=== PATIENT | male | born 1990 | race Caucasian/White ===

== ENCOUNTER 2021-12-24 09:25 | Emergency (ER) | payer MEDICAID ==
[2021-12-24] MEDS ORDERED: Zofran 4 MG/2 ML VIAL ONE (09:43)
[2021-12-24] MEDS ORDERED: TORAdol 30 mg Injection ONE (09:43)
[2021-12-24] MEDS ORDERED: Sodium Chloride 0.9% 1000 ML 1,000 ML ONE (09:43)
[2021-12-24] MEDS ORDERED: Sodium Chloride 0.9% 1000 ML 1,000 ML IV STA (09:51)
[2021-12-24] MEDS ORDERED: TORAdol 30 mg Injection IV ONE (09:52)
[2021-12-24] MEDS ORDERED: Zofran 4 MG/2 ML VIAL IV ONE (09:54)
[2021-12-24 09:59] LABS: Absolute Neutrophil Ct (ANC) 6.13 x10^3/uL (1.4-6.9); Basophil (Absolute #) 0.09 x10^3/uL (0-0.4); Eosinophil % 3.4 % (0.00-5.0); Hematocrit 46.6 % (42-50); Hemoglobin 16.1 g/dL (12.5-18.0); Lymphocyte (Absolute #) 1.56 x10^3/uL (1.0-4.6); Lymphocytes % 17.8 % (24.0-44.0); Mean Cell Volume 88.8 fL (78-100); Mean Corpuscular Hemoglobin 30.7 pg (26-32); Mean Corpuscular Hgb Concent. 34.5 g/dL (32-36); Mean Platelet Volume 10.4 fL (7.5-11.0); Monocyte (Absolute #) 0.64 x10^3/uL (0.0-1.3); Monocytes % 7.3 % (0.0-12.0); Neutrophil % 70.2 % (36.0-66.0); Platelet Count 250 x10^3/uL (150-450); Red Blood Count 5.25 x10^6/uL (4.1-5.6); Red Cell Distribution Width 11.9 % (11.5-14.0); White Blood Count 8.8 x10^3/uL (4.0-10.5)
--- NOTE | 2021-12-24 10:03 | ERPHSYRPT ---
- History of Present Illness Time Seen by Provider: 12/24/21 09:45 Source: patient Exam Limitations: no limitations Patient Subjective Stated Complaint: PT states "I have horrible pain in my right side." Triage Nursing Assessment: Pt presented alert and oriented X 3, skin pwd. Pt ambulates with a hunched over gait, holding his abdomen. Pt groaning and unable to sit still. Physician History: Patient is a 31-year-old male presents to emergency department for evaluation of right flank pain. Patient states pain started acutely at approximately 2 hours prior to arrival. Pain described as a stabbing sensation that is localized. No radiation. Pain localized to the right lower flank. No obvious hematuria. No trauma. No fever. Patient is mildly nauseous. No diarrhea. No rash. Symptoms are mild to moderate in intensity. No specific worsening or improving factors. Patient states is otherwise healthy. He voices no other complaints or concerns at this time. Timing/Duration: today Severity: moderate Modifying Factors: Improves With: nothing Associated Symptoms: nausea Allergies/Adverse Reactions: No Known Drug Allergies Allergy (Verified 12/24/21 09:49) Hx Tetanus, Diphtheria Vaccination/Date Given: No Hx Influenza Vaccination/Date Given: No Immunizations Up to Date: Yes Travel Risk - International Travel Have you traveled outside of the country in past 3 weeks: No - Coronavirus Screening Are you exhibiting any of the following symptoms?: No Close contact with a COVID-19 positive Pt in past 14-21 Days: No - Vaccine Status Have you recieved a Covid-19 vaccination: No - Review of Systems Constitutional: No Symptoms, No Fever, No Chills Eyes: No Symptoms Ears, Nose, & Throat: No Symptoms Respiratory: No Symptoms, No Cough, No Dyspnea Cardiac: No Symptoms, No Chest Pain, No Edema, No Syncope Abdominal/Gastrointestinal: No Symptoms, No Abdominal Pain, No Nausea, No Vomiting, No Diarrhea Genitourinary Symptoms: No Symptoms, No Dysuria Musculoskeletal: No Symptoms, No Back Pain, No Neck Pain Skin: No Symptoms, No Rash Neurological: No Symptoms, No Dizziness, No Focal Weakness, No Sensory Changes Psychological: No Symptoms Endocrine: No Symptoms Hematologic/Lymphatic: No Symptoms Immunological/Allergic: No Symptoms All Other Systems: Reviewed and Negative - Past Medical History Pertinent Past Medical History: Yes Cardiac History: Hypertension Psycho-Social History: Depression - Past Surgical History Past Surgical History: Yes - Social History Smoking Status: Current every day smoker How long have you smoked: years Exposure to second hand smoke: Yes Drug Use: marijuana Patient Lives Alone: No - Nursing Vital Signs Nursing Vital Signs: Initial Vital Signs Temperature 97.2 F 12/24/21 09:33 Pulse Rate 77 12/24/21 09:33 Respiratory Rate 22 12/24/21 09:33 Blood Pressure 134/100 12/24/21 09:33 O2 Sat by Pulse Oximetry 100 12/24/21 09:33 Pain Scale Pain Intensity 4 - Physical Exam General Appearance: no apparent distress, alert Eye Exam: PERRL/EOMI, eyes nml inspection Ears, Nose, Throat Exam: normal ENT inspection, TMs normal, pharynx normal, moist mucous membranes Neck Exam: normal inspection, non-tender, supple, full range of motion Respiratory Exam: normal breath sounds, lungs clear, airway intact, No respiratory distress Cardiovascular Exam: regular rate/rhythm, normal heart sounds, normal peripheral pulses Gastrointestinal/Abdomen Exam: soft, normal bowel sounds, No tenderness, No mass Back Exam: normal inspection, normal range of motion, No CVA tenderness, No vertebral tenderness Extremity Exam: normal inspection, normal range of motion, pelvis stable Neurologic Exam: alert, oriented x 3, cooperative, normal mood/affect, nml cere bellar function, nml station & gait, sensation nml, No motor deficits Skin Exam: normal color, warm, dry, No rash Lymphatic Exam: No adenopathy SpO2 Interpretation: normal SpO2: 100 O2 Delivery: Room Air - Course Nursing assessment & vital signs reviewed: Yes - CT Exams Abdomen/Pelvis CT Interpretation: Tele-radiologist Report (5 mm lung nodule, right 4 mm ureterolithiasis at L4. Hydronephrosis. Nephrolithiasis left renal cyst diverticulosis fatty hepatomegaly) Ordered Tests: Active Orders 24 hr Category Date Time Status IV Insertion STAT Care 12/24/21 09:51 Completed ABDOMEN AND PELVIS W/0 CONTRAS [CT] Stat Exams 12/24/21 10:32 Completed CBC W DIFF Stat Lab 12/24/21 09:34 Completed CMP Stat Lab 12/24/21 09:34 Completed CULTURE,URINE Stat Lab 12/24/21 Ordered UA W/RFX CULTURE Stat Lab 12/24/21 11:47 Completed Medication Summary Discontinued Medications Generic Name Dose Route Start Last Admin Trade Name Freq PRN Reason Stop Dose Admin Sodium Chloride Confirm 12/24/21 09:43 Sodium Chloride 0.9% 1000 Ml Administered 12/24/21 09:44 Dose 1,000 mls @ ud .ROUTE .STK-MED ONE Sodium Chloride 1,000 mls @ 999 mls/hr 12/24/21 09:51 12/24/21 11:19 Sodium Chloride 0.9% 1000 Ml IV 12/24/21 10:51 Infused .Q1H1M STA Infusion Ketorolac Tromethamine Confirm 12/24/21 09:43 Ketorolac Tromethamine 30 Mg/Ml Inj Administered 12/24/21 09:44 Dose 30 mg .ROUTE .STK-MED ONE Ketorolac Tromethamine 30 mg 12/24/21 09:52 12/24/21 09:55 Ketorolac Tromethamine 30 Mg/Ml Inj IV 12/24/21 09:53 30 mg STAT ONE Administration Morphine Sulfate 4 mg 12/24/21 10:19 12/24/21 10:21 Morphine Sulfate 4 Mg/Ml Injection IV 12/24/21 10:20 4 mg STAT ONE Administration Morphine Sulfate Confirm 12/24/21 10:20 Morphine Sulfate 4 Mg/Ml Injection Administered 12/24/21 10:21 Dose 4 mg .ROUTE .STK-MED ONE Ondansetron HCl Confirm 12/24/21 09:43 Ondansetron Hcl 4 Mg/2 Ml Vial Administered 12/24/21 09:44 Dose 4 mg .ROUTE .STK-MED ONE Ondansetron HCl 4 mg 12/24/21 09:54 12/24/21 09:55 Ondansetron Hcl 4 Mg/2 Ml Vial IV 12/24/21 09:55 4 mg STAT ONE Administration Lab/Rad Data: Laboratory Result Diagrams 12/24/21 09:34 12/24/21 09:34 Laboratory Results 12/24/21 12/24/21 12/24/21 Range/Units 11:47 09:34 09:34 WBC 8.8 (4.0-10.5) x10^3/uL RBC 5.25 (4.1-5.6) x10^6/uL Hgb 16.1 (12.5-18.0) g/dL Hct 46.6 (42-50) % MCV 88.8 (78-100) fL MCH 30.7 (26-32) pg MCHC 34.5 (32-36) g/dL RDW 11.9 (11.5-14.0) % Plt Count 250 (150-450) x10^3/uL MPV 10.4 (7.5-11.0) fL Gran % 70.2 H (36.0-66.0) % Immature Gran % (Auto) 0.3 (0.00-0.4) % Nucleat RBC Rel Count 0.0 (0.00-0.1) % Eos # (Auto) 0.30 (0-0.5) x10^3/uL Immature Gran # (Auto) 0.03 (0.00-0.03) x10^3u/L Absolute Lymphs (auto) 1.56 (1.0-4.6) x10^3/uL Absolute Monos (auto) 0.64 (0.0-1.3) x10^3/uL Absolute Nucleated RBC 0.00 (0.00-0.01) x10^3u/L Lymphocytes % 17.8 L (24.0-44.0) % Monocytes % 7.3 (0.0-12.0) % Eosinophils % 3.4 (0.00-5.0) % Basophils % 1.0 (0.0-0.4) % Absolute Granulocytes 6.13 (1.4-6.9) x10^3/uL Basophils # 0.09 (0-0.4) x10^3/uL Sodium 140 (137-145) mmol/L Potassium 4.5 (3.5-5.1) mmol/L Chloride 106 (98-107) mmol/L Carbon Dioxide 28 (22-30) mmol/L Anion Gap 10.2 (5-15) MEQ/L BUN 19 (9-20) mg/dL Creatinine 1.33 H (0.66-1.25) mg/dL Estimated GFR > 60.0 ML/MIN Glucose 107 H (74-106) mg/dL Calcium 8.9 (8.4-10.2) mg/dL Total Bilirubin 1.00 (0.2-1.3) mg/dL AST 39 (17-59) U/L ALT 54 H (0-50) U/L Alkaline Phosphatase 97 (38-126) U/L Serum Total Protein 7.3 (6.3-8.2) g/dL Albumin 4.0 (3.5-5.0) g/dL Urinalys Dipstick Clnc MAIN LAB Urine Color DARK YELLOW (YELLOW) Urine Appearance CLOUDY (CLEAR) Urine pH 8.5 (5-6) Ur Specific [place] 1.020 (1.005-1.025) POC Urine Protein Conf TRACE (Negative) Urine Ketones NEGATIVE (NEGATIVE) Urine Nitrite NEGATIVE (NEGATIVE) Urine Bilirubin NEGATIVE (NEGATIVE) Urine Urobilinogen 0.2 (0-1) mg/dL Urine Leukocytes NEGATIVE (NEGATIVE) Urine WBC (Auto) 6-10 (0-5) /HPF Urine RBC (Auto) >101 (0-2) /HPF U Epithel Cells (Auto) NONE (FEW) /HPF Urine Bacteria (Auto) NONE (NEGATIVE) /HPF Urine RBC LARGE (0-5) Alejandro/ul Urine Mucus (Auto) SLIGHT (NEGATIVE) /HPF Ur Culture Indicated? NO Urine Glucose NEGATIVE (NEGATIVE) mg/dL - Progress Progress: improved Progress Note: Patient reassessed. Pain significantly improved. Work-up reveals a ureteral lithiasis measuring 4 mm. There is associated hydronephrosis. Patient does have a 5 mm noncalcified lung nodule which will need follow-up. Slightly elevated creatinine. Patient understands the importance of follow-up and agrees to do so. Will discharge home. Patient received a prescription for Toradol [place] and Flomax. Patient has a referral to urology. Patient voices no other complaints or concerns at this time. He agrees to follow-up in 48 hours for evaluation. Portions of this note were created with voice recognition technology. There may be grammatical, spelling, punctuation or sound alike errors 12/24/21 11:04 12/24/21 11:09 Marginal pyuria on urinalysis. However in the setting it is likely not a urinary tract infection. Pyuria can be seen in ureterolithiasis. No indication for antibiotics at this time. Urine sent for culture. 12/24/21 13:51 Counseled pt/family regarding: lab results, diagnosis, need for follow-up, rad results - Departure Departure Disposition: Home Clinical Impression: Flank pain, Nephrolithiasis, Fatty liver, Hepatomegaly, Lung nodule, Ureterolithiasis, 4 mm kidney stone, Diverticulosis, Creatinine elevation Condition: Stable Critical Care Time: No Referrals: OTIS MELTON MD [Primary Care Provider] - Follow up/PCP as directed SOTO HENAO [COURTESY STAFF] - Follow up/PCP as directed Additional Instructions: Discharge/Care Plan MARY ALICE FOREMAN was seen on 12/24/21 in the Emergency Room. The patient was travel counselor ed regarding Diagnosis,Lab results, Imaging studies, need for follow up and when to return to the Emergency Room. Prescriptions given: Discharge Note I have spoken with the patient and/or caregivers. I have explained the patient's condition, diagnosis and treatment plan based on the information available to me at this time. I have answered the patient's and/or caregiver's questions and addressed any concerns. The patient and/or caregivers have as good understanding of the patient's diagnosis, condition and treatment plan as can be expected at this point. The vital signs have been stable. The patient's condition is stable and appropriate for discharge from the emergency department. The patient will pursue further outpatient evaluation with the primary care physician or other designated or consulting physician as outlined in the discharge instructions. The patient and/or caregivers are agreeable to this plan of care and follow-up instructions have been explained in detail. The patient and/or caregivers have received these instruction. The patient/and or caregivers are aware that any significant change in condition or worsening of symptoms should prompt an immediate return to this or the closest emergency department or call 911. Prescriptions: Tamsulosin HCl 0.4 mg [Flomax 0.4 MG] 0.4 mg PO DAILY 14 Days #14 cap
[2021-12-24 10:11] LABS: ALKALINE PHOSPHATASE 97 U/L (38-126); ANION GAP 10.2 MEQ/L (5-15); BLOOD UREA NITROGEN 19 mg/dL (9-20); CHLORIDE 106 mmol/L (98-107); Calcium 8.9 mg/dL (8.4-10.2); Carbon Dioxide 28 mmol/L (22-30); Creatinine 1 1.33 mg/dL (0.66-1.25); EST GLOMERULAR FILTRATION RATE > 60.0 ML/MIN; Glucose 107 mg/dL (74-106); Potassium 4.5 mmol/L (3.5-5.1); SGOT/AST 39 U/L (17-59); SGPT/ALT 54 U/L (0-50); SODIUM 140 mmol/L (137-145); Total Protein 7.3 g/dL (6.3-8.2)
[2021-12-24] MEDS ORDERED: MORPHINE SULFATE 4 MG INJ IV ONE (10:19)
[2021-12-24] MEDS ORDERED: MORPHINE SULFATE 4 MG INJ ONE (10:20)
--- NOTE | 2021-12-24 10:49 | XRAY ---
Indication: Right flank pain. Bleeding ulcers. Multiple contiguous axial images obtained through the abdomen and pelvis without contrast using renal stone protocol. Comparison: None Lung bases demonstrates minimal bibasilar subsegmental atelectasis/scarring. Anterior right middle lobe demonstrates incompletely visualized 4-5 mm noncalcified nodule. Heart is not enlarged. Right mid ureter demonstrates 3-4 mm calculus, approximately L4 level. Proximal right ureter is slightly prominent along with mild hydronephrosis and mild renal edema consistent with obstructive uropathy. Right lower kidney demonstrates additional punctate calculus. Left lower kidney demonstrates 1 cm cortical cyst. Noncontrasted stomach and bowel loops appear nonobstructed with normal appendix. Minimal sigmoid diverticulosis without diverticulitis. No free fluid/air. 19.4 cm fatty hepatomegaly. Remaining liver, gallbladder, pancreas, spleen, adrenal glands, kidneys, ureters, bladder, and aorta are unremarkable for noncontrast exam. Osseous structures intact. Impression: 1. 3-4 mm right mid ureter calculus producing obstructive uropathy as detailed. Additional nonobstructing right renal punctate calculus. 2. Incidental sigmoid diverticulosis and fatty hepatomegaly. 3. Indeterminant 4-5 mm right middle lobe noncalcified nodule.
[2021-12-24 11:22] VITALS: BP 150/90; PULSE 90
[2021-12-24 13:03] LABS: Mucus SLIGHT /HPF (NEGATIVE)
[2021-12-24 13:05] LABS: Appearance CLOUDY (CLEAR); Bilirubin NEGATIVE (NEGATIVE); Dipstick done @ ? MAIN LAB; Glucose NEGATIVE (NEGATIVE); Ketones NEGATIVE (NEGATIVE); Nitrite NEGATIVE (NEGATIVE); Ph 8.5 (5-6); Protein,Urine Dip TRACE (Negative); RBC LARGE Ery/ul (0-5); Urobilinogen 0.2 mg/dL (0-1)
[2021-12-24 13:06] LABS: RBC >101 /HPF (0-2)
[2021-12-24 13:07] LABS: Urine Cultured Indicated? NO
[2021-12-24 13:52] VITALS: O2SAT 100
== END 2021-12-24 11:39 | disposition home or self-care (01) ==
LOC: ED 09:25
DX: N13.2 Hydronephrosis with renal and ureteral calculous obstruction (principal); K76.0 Fatty (change of) liver, not elsewhere classified; R16.0 Hepatomegaly, not elsewhere classified; R91.1 Solitary pulmonary nodule; K57.90 Diverticulosis of intestine, part unspecified, without perforation or abscess without bleeding; R79.89 Other specified abnormal findings of blood chemistry; R10.31 Right lower quadrant pain; R11.0 Nausea; I10 Essential (primary) hypertension; Z72.0 Tobacco use; Z28.310 Unvaccinated for COVID-19
CPT/HCPCS: 36000; 36415; 74176; 80053; 81015; 85025; 87086; 96360; 96374; 96375; 99284; J1885; J2270; J2405

== ENCOUNTER 2021-12-28 19:00 | Emergency (ER) | payer MEDICAID ==
[2021-12-28] MEDS ORDERED: Hydromorphone 1 mg/ml Injection IV ONE (19:24)
[2021-12-28] MEDS ORDERED: TORAdol 30 mg Injection IV ONE (19:24)
[2021-12-28] MEDS ORDERED: Zofran 4 MG/2 ML VIAL IV ONE (19:24)
[2021-12-28] MEDS ORDERED: Hydromorphone 1 mg/ml Injection ONE (19:27)
[2021-12-28] MEDS ORDERED: Zofran 4 MG/2 ML VIAL ONE (19:27)
[2021-12-28] MEDS ORDERED: TORAdol 30 mg Injection ONE (19:27)
[2021-12-28] MEDS ORDERED: Sodium Chloride 0.9% 1000 ML 1,000 ML ONE (19:31)
--- NOTE | 2021-12-28 19:33 | ERPHSYRPT ---
- History of Present Illness Time Seen by Provider: 12/28/21 19:20 Historian: patient Exam Limitations: no limitations Patient Subjective Stated Complaint: pt states "I was hear the other day and they said I had a kidney stone. I ran out of my pain meds at home." Triage Nursing Assessment: pt ambulatory to bed by self, pt alert and oriented, pt has known kidney stone and was seen in the ER for it a couple days ago, pt ran out of his pain medication at home, pt was prescribed toradol and norco, pt moving side to side in bed Physician History: This is a 31-year-old white male patient who was diagnosed with a 3 to 4 mm right mid ureteral calculus on 12/24/2021. There is a slightly prominent ureter and mild hydronephrosis present. Patient was discharged to home with Toradol, [place] and Flomax. He is out of the Toradol and Flomax. Patient has an appointment to see a urologist on 12/30/2021. Patient was tolerating his pain with the NSAID and [place] combination. Patient did drive himself but he states he can get a ride home. Timing/Duration: today Activities at Onset: none Quality: aching Abdominal Pain Onset Location: flank (Right flank) Pain Radiation: RLQ Severity of Pain-Max: moderate Severity of Pain-Current: moderate Associated Symptoms: denies symptoms Previous symptoms: same symptoms as today, recently seen, recently treated Allergies/Adverse Reactions: No Known Drug Allergies Allergy (Verified 12/28/21 19:09) Hx Tetanus, Diphtheria Vaccination/Date Given: No Hx Influenza Vaccination/Date Given: No Hx Pneumococcal Vaccination/Date Given: No Immunizations Up to Date: No Travel Risk - International Travel Have you traveled outside of the country in past 3 weeks: No - Coronavirus Screening Are you exhibiting any of the following symptoms?: No Close contact with a COVID-19 positive Pt in past 14-21 Days: No - Vaccine Status Have you recieved a Covid-19 vaccination: No - Review of Systems Constitutional: No Symptoms Eyes: No Symptoms Ears, Nose, & Throat: No Symptoms Respiratory: No Symptoms Cardiac: No Symptoms Abdominal/Gastrointestinal: Abdominal Pain Genitourinary Symptoms: Flank Pain (Right) Musculoskeletal: No Symptoms Skin: No Symptoms Neurological: No Symptoms Psychological: No Symptoms Endocrine: No Symptoms Hematologic/Lymphatic: No Symptoms Immunological/Allergic: No Symptoms All Other Systems: Reviewed and Negative - Past Medical History Pertinent Past Medical History: Yes Neurological History: No Pertinent History ENT History: No Pertinent History Cardiac History: Hypertension Respiratory History: Asthma Endocrine Medical History: No Pertinent History Psycho-Social History: Depression - Past Surgical History Past Surgical History: No - Social History Smoking Status: Current every day smoker How long have you smoked: years Exposure to second hand smoke: Yes Drug Use: marijuana Patient Lives Alone: No - Nursing Vital Signs Nursing Vital Signs: Initial Vital Signs Temperature 97.7 F 12/28/21 19:09 Pulse Rate 99 H 12/28/21 19:09 Respiratory Rate 18 12/28/21 19:09 Blood Pressure 145/118 12/28/21 19:09 O2 Sat by Pulse Oximetry 97 12/28/21 19:09 Pain Scale Pain Intensity 4 - Physical Exam General Appearance: mild distress (To moderate), alert, anxiety Eye Exam: PERRL/EOMI, eyes nml inspection Ears, Nose, Throat Exam: normal ENT inspection, moist mucous membranes Neck Exam: normal inspection, non-tender, supple, full range of motion Respiratory Exam: normal breath sounds, lungs clear, airway intact, No chest tenderness, No respiratory distress Cardiovascular Exam: regular rate/rhythm, normal heart sounds, normal peripheral pulses Gastrointestinal/Abdomen Exam: soft, normal bowel sounds, No tenderness Rectal Exam: not done Back Exam: normal inspection, normal range of motion, No CVA tenderness, No vertebral tenderness Extremity Exam: normal inspection, normal range of motion, pelvis stable Neurologic Exam: alert, oriented x 3, cooperative, battery test engineer II-XII nml as tested, normal mood/affect, nml cerebellar function, nml station & gait, sensation nml Skin Exam: normal color, warm, dry Lymphatic Exam: No adenopathy SpO2 Interpretation: normal SpO2: 97 O2 Delivery: Room Air Ordered Tests: Active Orders 24 hr Category Date Time Status IV Insertion STAT Care 12/28/21 19:19 Active ABDOMEN AND PELVIS W/0 CONTRAS [CT] Stat Exams 12/28/21 19:34 Taken Medication Summary Discontinued Medications Generic Name Dose Route Start Last Admin Trade Name Freq PRN Reason Stop Dose Admin Hydromorphone HCl 1 mg 12/28/21 19:24 12/28/21 19:29 Hydromorphone 1 Mg/1ml Inj 1 Mg/Ml Syringe IV 12/28/21 19:25 1 mg STAT ONE Administration Hydromorphone HCl Confirm 12/28/21 19:27 Hydromorphone 1 Mg/1ml Inj 1 Mg/Ml Syringe Administered 12/28/21 19:28 Dose 1 mg .ROUTE .STK-MED ONE Sodium Chloride Confirm 12/28/21 19:31 Sodium Chloride 0.9% 1000 Ml Administered 12/28/21 19:32 Dose 1,000 mls @ ud .ROUTE .STK-MED ONE Sodium Chloride 1,000 mls @ 999 mls/hr 12/28/21 19:34 12/28/21 20:40 Sodium Chloride 0.9% 1000 Ml IV 12/28/21 20:34 Infused .Q1H1M STA Infusion Ketorolac Tromethamine 30 mg 12/28/21 19:24 12/28/21 19:29 Ketorolac Tromethamine 30 Mg/Ml Inj IV 12/28/21 19:25 30 mg STAT ONE Administration Ketorolac Tromethamine Confirm 12/28/21 19:27 Ketorolac Tromethamine 30 Mg/Ml Inj Administered 12/28/21 19:28 Dose 30 mg .ROUTE .STK-MED ONE Ondansetron HCl 4 mg 12/28/21 19:24 12/28/21 19:28 Ondansetron Hcl 4 Mg/2 Ml Vial IV 12/28/21 19:25 4 mg STAT ONE Administration Ondansetron HCl Confirm 12/28/21 19:27 Ondansetron Hcl 4 Mg/2 Ml Vial Administered 12/28/21 19:28 Dose 4 mg .ROUTE .STK-MED ONE - Progress Progress: improved Progress Note: 12/28/21 20:51 Cat Scan of the abdomen pelvis without contrast was no change from the CAT scan that was performed on 12/24/2021. Counseled pt/family regarding: diagnosis, need for follow-up, rad results - Departure Departure Disposition: Home Clinical Impression: Right ureteral calculus, Obstructive uropathy Condition: Stable Critical Care Time: No Referrals: OTIS MELTON MD [Primary Care Provider] - Follow up/PCP as directed Additional Instructions: Drink plenty of fluids. Take ibuprofen 600 mg orally 3 times a day with food for the next 5 days. Continue your Flomax as prescribed. Keep your appointment with your urologist on 12/30/2021. Prescriptions: Hydrocodone/APAP 5/325 [[place] 5/325 mg] 1 each PO Q8H PRN PRN #6 tablet MDD 3 PRN Reason: Pain
[2021-12-28] MEDS ORDERED: Sodium Chloride 0.9% 1000 ML 1,000 ML IV STA (19:34)
[2021-12-28 20:29] VITALS: BP 135/85; PULSE 84
[2021-12-28 20:52] VITALS: O2SAT 97
[2021-12-28] MEDS ORDERED: NORCO 5/325 MG PO ONE (20:52)
[2021-12-28] MEDS ORDERED: NORCO 5/325 MG ONE (20:53)
--- NOTE | 2021-12-29 08:40 | XRAY ---
Indication: Right flank pain. Multiple contiguous axial images obtained through the abdomen and pelvis without contrast. Comparison: December 24, 2021 Lung bases clear. Heart not enlarged. Stomach is now distended with food/fluid. Noncontrasted stomach and bowel loops remain nonobstructed again with normal appendix. Stable 4 mm right mid ureter calculus again approximately L4 level with minimal hydroureter and mild hydronephrosis. No free fluid/air. Stable right lower renal punctate calculus, small left renal cyst, and fatty hepatomegaly. Remaining liver, gallbladder, pancreas, spleen, adrenal glands, kidneys, ureters, bladder, and aorta are unremarkable for noncontrast exam. Impression: Stable CT abdomen/pelvis without contrast exam again demonstrating 4 mm right mid ureter calculus producing partial obstructive uropathy, right renal punctate calculus, left renal cyst, and fatty hepatomegaly. No new/acute findings.
== END 2021-12-28 21:05 | disposition home or self-care (01) ==
LOC: ED 19:00
DX: N13.2 Hydronephrosis with renal and ureteral calculous obstruction (principal); R10.31 Right lower quadrant pain; I10 Essential (primary) hypertension; Z72.0 Tobacco use; Z79.891 Long term (current) use of opiate analgesic; Z28.310 Unvaccinated for COVID-19
CPT/HCPCS: 36000; 74176; 96360; 96374; 96375; 99284; J1170; J1885; J2405; A9270-GY

== ENCOUNTER 2022-02-14 11:16 | Emergency (ER) | payer OTHER ==
[2022-02-14] MEDS ORDERED: TORAdol 30 mg Injection IV ONE (12:06)
[2022-02-14] MEDS ORDERED: TORAdol 30 mg Injection ONE (12:14)
[2022-02-14 12:39] LABS: Absolute Neutrophil Ct (ANC) 5.74 x10^3/uL (1.4-6.9); Basophil (Absolute #) 0.06 x10^3/uL (0-0.4); Eosinophil % 3.3 % (0.00-5.0); Eosinophil (Absolute #) 0.26 x10^3/uL (0-0.5); Hematocrit 45.8 % (42-50); Hemoglobin 15.6 g/dL (12.5-18.0); Lymphocyte (Absolute #) 1.39 x10^3/uL (1.0-4.6); Lymphocytes % 17.6 % (24.0-44.0); Mean Cell Volume 89.8 fL (78-100); Mean Corpuscular Hemoglobin 30.6 pg (26-32); Mean Corpuscular Hgb Concent. 34.1 g/dL (32-36); Mean Platelet Volume 10.4 fL (7.5-11.0); Monocytes % 5.1 % (0.0-12.0); Neutrophil % 72.4 % (36.0-66.0); Platelet Count 263 x10^3/uL (150-450); Red Cell Distribution Width 11.9 % (11.5-14.0); White Blood Count 7.9 x10^3/uL (4.0-10.5)
[2022-02-14 13:30] LABS: Calcium Oxalate Crystals 26-50 /HPF (NEGATIVE); Mucus SLIGHT /HPF (NEGATIVE)
[2022-02-14 13:32] LABS: Appearance CLEAR (CLEAR); Bilirubin NEGATIVE (NEGATIVE); Dipstick done @ ? MAIN LAB; Glucose NEGATIVE (NEGATIVE); Ketones NEGATIVE (NEGATIVE); Nitrite NEGATIVE (NEGATIVE); Ph 6.5 (5-6); Protein,Urine Dip TRACE (Negative); RBC >101 /HPF (0-2); RBC LARGE Ery/ul (0-5); Specific Gravity 1.025 (1.005-1.025); Urobilinogen 1 mg/dL (0-1)
[2022-02-14 13:33] LABS: Urine Cultured Indicated? YES
[2022-02-14 13:35] LABS: ALBUMIN 4.1 g/dL (3.5-5.0); ALKALINE PHOSPHATASE 103 U/L (38-126); ANION GAP 11.8 MEQ/L (5-15); BLOOD UREA NITROGEN 17 mg/dL (9-20); CHLORIDE 109 mmol/L (98-107); Calcium 8.6 mg/dL (8.4-10.2); Carbon Dioxide 22 mmol/L (22-30); Creatinine 1 1.01 mg/dL (0.66-1.25); EST GLOMERULAR FILTRATION RATE > 60.0 ML/MIN; Glucose 163 mg/dL (74-106); SGOT/AST 37 U/L (17-59); SGPT/ALT 46 U/L (0-50); SODIUM 139 mmol/L (137-145); Total Protein 7.2 g/dL (6.3-8.2)
[2022-02-14] MEDS ORDERED: Sodium Chloride 0.9% 1000 ML 1,000 ML IV STA (13:44)
[2022-02-14] MEDS ORDERED: Sodium Chloride 0.9% 1000 ML 1,000 ML ONE (13:47)
[2022-02-14] MEDS ORDERED: Flomax 0.4 MG PO STA (15:11)
[2022-02-14] MEDS ORDERED: Flomax 0.4 MG ONE (15:16)
--- NOTE | 2022-02-14 15:17 | ERPHSYRPT ---
- History of Present Illness Time Seen by Provider: 02/14/22 11:51 Historian: patient Exam Limitations: no limitations Patient Subjective Stated Complaint: pt reports pelvic pain and urinary urgency/frequency for 3 days, reports history of kidney stone. Triage Nursing Assessment: pt is aox3, appears in pain, afebrile, resps easy and non labored, radial pulses strong and equal, cap refill < 3 seconds, pt skin pink warm dry. abd soft, tender to the lower mid pubic region. Physician History: 31-year-old male presented in the ER with chief complaint of suprapubic area pressure with sharp pain moderate to severe intensity with constant desire to urinate and sense of incomplete urination/dysuria for the last 3 days with progressive worsening. Denies any hematuria, nausea vomiting fever or chills. Does have history of kidney stones almost a month ago. Denies any urethral discharge or history of STDs. Timing/Duration: day(s) (3), intermittent, gradual onset, worse Activities at Onset: rest Quality: sharpness Abdominal Pain Onset Location: suprapubic Pain Radiation: no radiation Severity of Pain-Max: severe Severity of Pain-Current: moderate Modifying Factors: Improves With: nothing Associated Symptoms: denies symptoms Previous symptoms: no prior history Allergies/Adverse Reactions: No Known Drug Allergies Allergy (Verified 02/14/22 11:30) Home Medications: Omeprazole 40 mg PO DAILY 02/14/22 [History] Sertraline HCl 50 mg [Zoloft 50 mg Tablet] 50 mg PO DAILY 02/14/22 [History] Hx Tetanus, Diphtheria Vaccination/Date Given: Yes Hx Influenza Vaccination/Date Given: No Hx Pneumococcal Vaccination/Date Given: No Immunizations Up to Date: Yes Travel Risk - International Travel Have you traveled outside of the country in past 3 weeks: No - Coronavirus Screening Are you exhibiting any of the following symptoms?: No Close contact with a COVID-19 positive Pt in past 14-21 Days: No - Vaccine Status Have you recieved a Covid-19 vaccination: No - Review of Systems Constitutional: No Symptoms Eyes: No Symptoms Ears, Nose, & Throat: No Symptoms Respiratory: No Symptoms Cardiac: No Symptoms Abdominal/Gastrointestinal: Abdominal Pain Genitourinary Symptoms: Dysuria, Frequency, No Testicle Pain Musculoskeletal: No Symptoms Skin: No Symptoms Neurological: No Symptoms Psychological: No Symptoms Hematologic/Lymphatic: No Symptoms Immunological/Allergic: No Symptoms - Past Medical History Pertinent Past Medical History: Yes Neurological History: No Pertinent History ENT History: No Pertinent History Cardiac History: Hypertension Respiratory History: Asthma Endocrine Medical History: No Pertinent History Psycho-Social History: Depression - Past Surgical History Past Surgical History: No - Social History Smoking Status: Current every day smoker How long have you smoked: years Exposure to second hand smoke: Yes Drug Use: marijuana Patient Lives Alone: No - Nursing Vital Signs Nursing Vital Signs: Initial Vital Signs Temperature 97.6 F 02/14/22 11:21 Pulse Rate 85 02/14/22 11:21 Respiratory Rate 18 02/14/22 11:21 Blood Pressure 142/110 02/14/22 11:21 O2 Sat by Pulse Oximetry 97 02/14/22 11:21 Pain Scale Pain Intensity 6 - Physical Exam General Appearance: no apparent distress, alert Eye Exam: PERRL/EOMI Ears, Nose, Throat Exam: normal ENT inspection Neck Exam: normal inspection, full range of motion Respiratory Exam: normal breath sounds, lungs clear Cardiovascular Exam: regular rate/rhythm, normal heart sounds Gastrointestinal/Abdomen Exam: soft, normal bowel sounds, tenderness (Suprapubic area with no guarding or rebound tenderness) Back Exam: normal inspection, normal range of motion, No CVA tenderness Extremity Exam: normal inspection, normal range of motion Neurologic Exam: alert, oriented x 3, cooperative Skin Exam: normal color SpO2 Interpretation: normal SpO2: 97 O2 Delivery: Room Air Ordered Tests: Active Orders 24 hr Category Date Time Status ABDOMEN AND PELVIS W/0 CONTRAS [CT] Stat Exams 02/14/22 13:44 Taken CBC W DIFF Stat Lab 02/14/22 12:06 Completed CMP Stat Lab 02/14/22 13:00 Completed CULTURE,URINE Stat Lab 02/14/22 13:03 Received UA W/RFX CULTURE Stat Lab 02/14/22 13:03 Completed Medication Summary Discontinued Medications Generic Name Dose Route Start Last Admin Trade Name Freq PRN Reason Stop Dose Admin Sodium Chloride 1,000 mls @ 999 mls/hr 02/14/22 13:44 02/14/22 13:55 Sodium Chloride 0.9% 1000 Ml IV 02/14/22 14:44 999 mls/hr .Q1H1M STA Administration Sodium Chloride Confirm 02/14/22 13:47 Sodium Chloride 0.9% 1000 Ml Administered 02/14/22 13:48 Dose 1,000 mls @ ud .ROUTE .STK-MED ONE Ketorolac Tromethamine 30 mg 02/14/22 12:06 02/14/22 12:15 Ketorolac Tromethamine 30 Mg/Ml Inj IV 02/14/22 12:07 30 mg STAT ONE Administration Ketorolac Tromethamine Confirm 02/14/22 12:14 Ketorolac Tromethamine 30 Mg/Ml Inj Administered 02/14/22 12:15 Dose 30 mg .ROUTE .STK-MED ONE Tamsulosin HCl 0.4 mg 02/14/22 15:11 02/14/22 15:17 Tamsulosin Hcl 0.4 Mg Cap PO 02/14/22 15:12 0.4 mg ONCE STA Administration Tamsulosin HCl Confirm 02/14/22 15:16 Tamsulosin Hcl 0.4 Mg Cap Administered 02/14/22 15:17 Dose 0.4 mg .ROUTE .K-[facility] ONE Lab/Rad Data: Laboratory Result Diagrams 02/14/22 12:06 02/14/22 13:00 Laboratory Results 02/14/22 02/14/22 02/14/22 Range/Units 13:03 13:00 12:06 WBC 7.9 (4.0-10.5) x10^3/uL RBC 5.10 (4.1-5.6) x10^6/uL Hgb 15.6 (12.5-18.0) g/dL Hct 45.8 (42-50) % MCV 89.8 (78-100) fL MCH 30.6 (26-32) pg MCHC 34.1 (32-36) g/dL RDW 11.9 (11.5-14.0) % Plt Count 263 (150-450) x10^3/uL MPV 10.4 (7.5-11.0) fL Gran % 72.4 H (36.0-66.0) % Immature Gran % (Auto) 0.8 H (0.00-0.4) % Nucleat RBC Rel Count 0.0 (0.00-0.1) % Eos # (Auto) 0.26 (0-0.5) x10^3/uL Immature Gran # (Auto) 0.06 H (0.00-0.03) x10^3u/L Absolute Lymphs (auto) 1.39 (1.0-4.6) x10^3/uL Absolute Monos (auto) 0.40 (0.0-1.3) x10^3/uL Absolute Nucleated RBC 0.00 (0.00-0.01) x10^3u/L Lymphocytes % 17.6 L (24.0-44.0) % Monocytes % 5.1 (0.0-12.0) % Eosinophils % 3.3 (0.00-5.0) % Basophils % 0.8 (0.0-0.4) % Absolute Granulocytes 5.74 (1.4-6.9) x10^3/uL Basophils # 0.06 (0-0.4) x10^3/uL Sodium 139 (137-145) mmol/L Potassium 4.0 (3.5-5.1) mmol/L Chloride 109 H (98-107) mmol/L Carbon Dioxide 22 (22-30) mmol/L Anion Gap 11.8 (5-15) MEQ/L BUN 17 (9-20) mg/dL Creatinine 1.01 (0.66-1.25) mg/dL Estimated GFR > 60.0 ML/MIN Glucose 163 H (74-106) mg/dL Calcium 8.6 (8.4-10.2) mg/dL Total Bilirubin 0.60 (0.2-1.3) mg/dL AST 37 (17-59) U/L ALT 46 (0-50) U/L Alkaline Phosphatase 103 (38-126) U/L Serum Total Protein 7.2 (6.3-8.2) g/dL Albumin 4.1 (3.5-5.0) g/dL Urinalys Dipstick Clnc MAIN LAB Urine Color YELLOW (YELLOW) Urine Appearance CLEAR (CLEAR) Urine pH 6.5 (5-6) Ur Specific [place] 1.025 (1.005-1.025) POC Urine Protein Conf TRACE (Negative) Urine Ketones NEGATIVE (NEGATIVE) Urine Nitrite NEGATIVE (NEGATIVE) Urine Bilirubin NEGATIVE (NEGATIVE) Urine Urobilinogen 1 (0-1) mg/dL Urine Leukocytes NEGATIVE (NEGATIVE) Urine WBC (Auto) 3-5 (0-5) /HPF Urine RBC (Auto) >101 (0-2) /HPF U Epithel Cells (Auto) NONE (FEW) /HPF Urine Bacteria (Auto) NONE (NEGATIVE) /HPF Urine RBC LARGE (0-5) Alejandro/ul Calcium Oxalate Crystal 26-50 (NEGATIVE) /HPF Urine Mucus (Auto) SLIGHT (NEGATIVE) /HPF Ur Culture Indicated? YES Urine Glucose NEGATIVE (NEGATIVE) mg/dL - Progress Progress: improved Progress Note: 02/14/22 15:15 Is given Toradol for symptomatic relief along with fluid bolus. Work-up showed normal white count, unremarkable chemistries including renal functions. Urina lysis showed a lot of RBCs but no definite UTI. Obtained CT abdomen pelvis which showed 3 mm right UVJ stone with mild hydroureteronephrosis. No signs of obstructive uropathy. Patient has appointment with urology in 2 days. Recommended Flomax and NSAIDs, outpatient follow-up. Discussed signs symptoms of worsening needing return to ER which he seems understanding. Counseled pt/family regarding: lab results, diagnosis, need for follow-up, rad results - Departure Departure Disposition: Home Clinical Impression: Ureterolithiasis Condition: Stable Critical Care Time: No Referrals: OTIS MELTON MD [Primary Care Provider] - Follow Up with PCP/3 days SOTO HENAO [COURTESY STAFF] - Follow up/PCP as directed (As scheduled in 2 days) Instructions: Urinary Tract Infection, Adult (DC) Additional Instructions: Drink plenty of fluids keep yourself well-hydrated. Take Tylenol/ibuprofen as needed for pain. Keep appointment with urology. Return to ER for worsening pa in, difficulty urination, fever chills etc. Prescriptions: Ibuprofen 600 mg PO Q6HPRN PRN 10 Days #20 tablet PRN Reason: Pain Tamsulosin HCl 0.4 mg [Flomax 0.4 MG] 0.4 mg PO DAILY #30 cap
[2022-02-14 15:31] VITALS: BP 120/89; PULSE 70; O2SAT 99
--- NOTE | 2022-02-14 18:24 | XRAY ---
Indication: Suprapubic pain. Kidney stone. Multiple contiguous images obtained through the abdomen and pelvis without contrast. Comparison: December 28, 2021 Lung bases clear. Heart not enlarged. Noncontrasted stomach and bowel loops nonobstructed. Normal appendix. No free fluid/air. Previous 4 mm right mid ureter calculus now seen at the level of the UVJ. Proximal right ureter minimally prominent without hydronephrosis or perinephric fluid. Stable right lower renal punctate calculus, small left renal cyst, and fatty hepatomegaly. Remaining liver, gallbladder, pancreas, spleen, adrenal glands, kidneys, ureters, bladder, and aorta are unremarkable for noncontrast exam. Impression: 1. Antegrade movement of previous right renal micro-calculus now seen at the UVJ. 2. Again additional right renal punctate calculus, left renal cyst, and fatty hepatomegaly. Comment: Preliminary interpretation made by [facility]. No critical discrepancy.
== END 2022-02-14 15:32 | disposition home or self-care (01) ==
LOC: ED 11:16
DX: N13.2 Hydronephrosis with renal and ureteral calculous obstruction (principal); R10.2 Pelvic and perineal pain; R39.15 Urgency of urination; R30.0 Dysuria; Z87.442 Personal history of urinary calculi; I10 Essential (primary) hypertension; Z72.0 Tobacco use; Z79.899 Other long term (current) drug therapy; Z28.310 Unvaccinated for COVID-19
CPT/HCPCS: 36415; 74176; 80053; 81015; 85025; 87086; 96360; 96374; 99284; J1885; A9270-GY

== ENCOUNTER 2022-04-21 13:48 | Day surgery (SDC) | payer OTHER ==
[2022-04-21] MEDS ORDERED: LIDOCAINE HCL 2% 100 MG/5 ML IJ ONE (13:49)
[2022-04-21] MEDS ORDERED: Reglan 10 MG/2 ML ONE (15:50)
[2022-04-21] MEDS ORDERED: Pepcid 20 MG VIAL IV ONE (15:50)
[2022-04-21] MEDS ORDERED: Versed 2 MG/2 ML Injection ONE (15:50)
[2022-04-21] MEDS ORDERED: Lactated Ringers 1,000 ML IV ONE (16:45)
[2022-04-21] MEDS ORDERED: DIPRIVAN 200 MG/20 ML IV ONE (17:04)
--- NOTE | 2022-04-21 20:20 | XRAY ---
Indication: Bilateral L4-S1 MBB. Intraoperative fluoroscopy provided for 11 seconds. Single digital spot images submitted for interpretation demonstrates posterior needle tips projecting over the expected left and right L4-S1 nerve roots. Correlate with intraoperative findings/report.
--- NOTE | 2022-04-22 09:13 | XRAY ---
11 seconds of fluoroscopy was used in surgery for a bilateral L4-S1 MBB.
== END 2022-04-21 17:25 | disposition home or self-care (01) ==
LOC: SDC-PAIN 13:48
PROVIDERS: ATTEND Psychiatry & Neurology Pain Medicine
DX: M47.816 Spondylosis without myelopathy or radiculopathy, lumbar region (principal); Z79.899 Other long term (current) drug therapy
CPT/HCPCS: 64493; 64494; 72020; 77002; J2250; J2704

== ENCOUNTER 2022-06-02 13:33 | Day surgery (SDC) | payer OTHER ==
[2022-06-02] MEDS ORDERED: BUPIVACAINE 0.5% VIAL IJ ONE (13:34)
[2022-06-02] MEDS ORDERED: DIPRIVAN 200 MG/20 ML IV ONE (15:30)
[2022-06-02] MEDS ORDERED: Lactated Ringers 1,000 ML IV ONE (15:56)
--- NOTE | 2022-06-02 16:20 | XRAY ---
Indication: Bilateral L4-S1 MBB. Intraoperative fluoroscopy provided for 29 seconds. Single digital spot image submitted for interpretation demonstrates posterior needle tips projecting over the expected left and right L4-S1 nerve roots. Correlate with intraoperative findings/report.
--- NOTE | 2022-06-02 16:30 | XRAY ---
23 seconds of fluoroscopy was used in surgery for a bilateral L4-S1 MBB.
== END 2022-06-02 15:55 | disposition home or self-care (01) ==
LOC: SDC-PAIN 13:33
PROVIDERS: ATTEND Psychiatry & Neurology Pain Medicine
DX: M47.816 Spondylosis without myelopathy or radiculopathy, lumbar region (principal); Z79.899 Other long term (current) drug therapy
CPT/HCPCS: 64493; 64494; 72020; 77002; J2704

== ENCOUNTER 2022-06-23 06:58 | Day surgery (SDC) | payer OTHER ==
[2022-06-23] MEDS ORDERED: LIDOCAINE HCL 1% 50 MG/5 ML VL PF IJ ONE (06:59)
[2022-06-23] MEDS ORDERED: Depo-Medrol 40 MG/ML IM ONE (06:59)
[2022-06-23] MEDS ORDERED: BUPIVACAINE 0.5% VIAL IJ ONE (06:59)
[2022-06-23] MEDS ORDERED: DIPRIVAN 200 MG/20 ML IV ONE (08:56)
--- NOTE | 2022-06-23 09:55 | XRAY ---
Indication: Right L4-S1 RFA. Intraoperative fluoroscopy provided for 19 seconds. 3 digital spot images submitted for interpretation demonstrates posterior needle tips projecting over the expected right L4-S1 nerve roots. Correlate with intraoperative findings/report.
--- NOTE | 2022-06-23 09:59 | XRAY ---
19 seconds of fluoroscopy was used in surgery for a right L4-S1 RFA.
[2022-06-23] MEDS ORDERED: Lactated Ringers 1,000 ML IV ONE (13:14)
== END 2022-06-23 09:30 | disposition home or self-care (01) ==
LOC: SDC-PAIN 06:58
PROVIDERS: ATTEND Psychiatry & Neurology Pain Medicine
DX: M47.816 Spondylosis without myelopathy or radiculopathy, lumbar region (principal); Z79.899 Other long term (current) drug therapy
CPT/HCPCS: 64635; 64636; 72100; 77002; J1030; J2001; J2704

== ENCOUNTER 2022-06-30 07:00 | Day surgery (SDC) | payer OTHER ==
[2022-06-30] MEDS ORDERED: BUPIVACAINE 0.5% VIAL IJ ONE (07:01)
[2022-06-30] MEDS ORDERED: LIDOCAINE HCL 1% 50 MG/5 ML VL PF IJ ONE (07:01)
[2022-06-30] MEDS ORDERED: Depo-Medrol 40 MG/ML IM ONE (07:01)
[2022-06-30] MEDS ORDERED: Versed 2 MG/2 ML Injection ONE (08:14)
[2022-06-30] MEDS ORDERED: DIPRIVAN 200 MG/20 ML IV ONE (09:05)
--- NOTE | 2022-06-30 12:24 | XRAY ---
42 seconds of fluoroscopy was used in surgery for a left L4-S1 RFA.
[2022-06-30] MEDS ORDERED: Lactated Ringers 1,000 ML IV ONE (13:25)
--- NOTE | 2022-06-30 14:20 | XRAY ---
Indication: Left L4-S1 RFA. Intraoperative fluoroscopy provided for 42 seconds. 3 digital spot image submitted for interpretation demonstrates posterior needle tips projecting over the expected left L4-S1 nerve roots. Correlate with intraoperative findings/report.
== END 2022-06-30 09:45 | disposition home or self-care (01) ==
LOC: SDC-PAIN 07:00 → EDSTATUS 07:15 → SDC-PAIN 09:45
PROVIDERS: ATTEND Psychiatry & Neurology Pain Medicine
DX: M47.816 Spondylosis without myelopathy or radiculopathy, lumbar region (principal); Z79.899 Other long term (current) drug therapy
CPT/HCPCS: 64635; 64636; 72100; 77002; J1030; J2001; J2250; J2704

== ENCOUNTER 2022-12-09 08:51 | Day surgery (SDC) | payer OTHER ==
[2022-12-09] MEDS ORDERED: LIDOCAINE HCL 2% 100 MG/5 ML IJ ONE (08:52)
[2022-12-09] MEDS ORDERED: DIPRIVAN 200 MG/20 ML IV ONE ×2 (11:19→11:30)
[2022-12-09] MEDS ORDERED: Lactated Ringers 1,000 ML IV ONE (11:44)
--- NOTE | 2022-12-09 13:17 | XRAY ---
Indication: Left C2-C4 MBB. Intraoperative fluoroscopy provided for 27 seconds. 2 digital spot image submitted for interpretation demonstrates posterior needle tips projecting over the expected left C2-C4 nerve roots. Correlate with intraoperative findings/report.
--- NOTE | 2022-12-09 13:21 | XRAY ---
27 seconds of fluoroscopy was used in surgery for a left C2-C4 MBB.
== END 2022-12-09 11:52 | disposition home or self-care (01) ==
LOC: SDC-PAIN 08:51
PROVIDERS: ATTEND Psychiatry & Neurology Pain Medicine
DX: M47.812 Spondylosis without myelopathy or radiculopathy, cervical region (principal); Z79.899 Other long term (current) drug therapy
CPT/HCPCS: 64490; 64491; 72040; 77002; J2704

== ENCOUNTER → 2023-03-30 | Day surgery (SDC) | payer OTHER ==
[~2023-03-30] MED LIST: DIPRIVAN 200 MG/20 ML IV ONE; LIDOCAINE HCL 2% 100 MG/5 ML IJ ONE; Lactated Ringers 1,000 ML IV ONE
--- NOTE | 2023-03-30 16:53 | XRAY ---
Indication: Right C2-C4 MBB. Intraoperative fluoroscopy provided for 19 seconds. 2 digital spot images submitted for interpretation demonstrates posterior needle tips projecting over the right C2-C4 nerve roots. Correlate with intraoperative findings/report.
--- NOTE | 2023-03-30 17:23 | XRAY ---
19 seconds of fluoroscopy was used in surgery for a right C2-C4 MBB.
== END ==
LOC: SDC-PAIN 12:35
PROVIDERS: ATTEND Psychiatry & Neurology Pain Medicine
DX: M47.812 Spondylosis without myelopathy or radiculopathy, cervical region (principal); Z79.899 Other long term (current) drug therapy
CPT/HCPCS: 64490; 64491; 72040; 77002; J2704

== ENCOUNTER → 2023-05-04 | Day surgery (SDC) | payer OTHER ==
[~2023-05-04] MED LIST changes: +BUPIVACAINE 0.5% VIAL IJ ONE; -LIDOCAINE HCL 2% 100 MG/5 ML IJ ONE; +Versed 2 MG/2 ML Injection ONE
--- NOTE | 2023-05-04 14:00 | XRAY ---
Indication: Right C2-C4 MBB. Intraoperative fluoroscopy provided for 25 seconds. 2 digital spot images submitted for interpretation demonstrates posterior needle tips projecting over the expected right C2-C4 nerve roots. Correlate with intraoperative findings/report.
--- NOTE | 2023-05-04 16:56 | XRAY ---
25 seconds of fluoroscopy was used in surgery for a right C2-C4 MBB.
== END ==
LOC: SDC-PAIN 11:20
PROVIDERS: ATTEND Psychiatry & Neurology Pain Medicine
DX: M47.812 Spondylosis without myelopathy or radiculopathy, cervical region (principal)
CPT/HCPCS: 64490; 64491; 72040; 77002; J2250; J2704

== ENCOUNTER 2023-06-22 09:14 | Day surgery (SDC) | payer OTHER ==
[2023-06-22] MEDS ORDERED: Decadron 4 MG INJ IV ONE (09:15)
[2023-06-22] MEDS ORDERED: Sodium Chloride 0.9(Preservative Free) 10 ML IJ ONE (09:15)
[2023-06-22] MEDS ORDERED: DIPRIVAN 200 MG/20 ML IV ONE (11:25)
--- NOTE | 2023-06-22 11:56 | XRAY ---
Indication: Right L4-S1 transforaminal NATHALIA. Intraoperative fluoroscopy provided for 19 seconds. 4 digital spot image submitted for interpretation demonstrates posterior needle tips projecting over the expected right L4 and L5 nerve roots. Small amount of contrast injected for needle tip placement. Correlate with intraoperative findings/report.
[2023-06-22] MEDS ORDERED: Lactated Ringers 1,000 ML IV ONE (13:38)
--- NOTE | 2023-06-22 13:46 | XRAY ---
19 seconds of fluoroscopy was used in surgery for a right L4-S1 transforaminal NATHALIA.
== END 2023-06-22 11:53 | disposition home or self-care (01) ==
LOC: SDC-PAIN 09:14
PROVIDERS: ATTEND Psychiatry & Neurology Pain Medicine
DX: M54.16 Radiculopathy, lumbar region (principal); E11.9 Type 2 diabetes mellitus without complications
CPT/HCPCS: 64483; 64484; 72100; 77003; 82947; J1100; J2704; Q9966